=== PATIENT | female | born 1960 | race Caucasian/White ===

== ENCOUNTER 2022-03-12 08:43 | Emergency (ER) | payer MEDICAID ==
[~2022-03-12] VITALS: Ht 165.1 cm; Wt 102.3 kg
[2022-03-12 09:05] VITALS: BP 155/85
[2022-03-12] MEDS ORDERED: cefTRIAXone SOD 1,000 MG VL IM ONE (09:30)
[2022-03-12] MEDS ORDERED: CLIN300C8 PO (09:32)
[2022-03-12] MEDS ORDERED: IBUP800T27 PO (09:32)
== END 2022-03-12 09:57 | disposition home or self-care (01) ==
LOC: ER 08:43
DX: K04.7 Periapical abscess without sinus (principal); F17.290 Nicotine dependence, other tobacco product, uncomplicated
CPT/HCPCS: 96372; 99283; J0696

== ENCOUNTER 2024-11-19 17:40 | Emergency (ER) | payer MEDICAID ==
[~2024-11-19] VITALS: Ht 165.1 cm; Wt 87.1 kg
[~2024-11-19 17:40] MED LIST: CLIN1CAP70 PO; IBUP-1456 PO
--- NOTE | 2024-11-19 18:05 | ED.PDOC ---
GI ASSESSMENT HPI Comments 64-year-old female with a history of hypertension and anxiety brought in by self complaining of lower abdominal pain since 11/17/2024, described as dull, associated with diarrhea. Patient also reports fatigue, but denies fever, nausea, vomiting or dysuria. Patient also reports chest pain described as tightness 2 days ago. She states she took her own anxiety medication (buspirone and diazepam), and chest pain resolved. Denies any current chest pain, shortness of breath, diaphoresis, edema or palpitations. Chief Complaint: Pelvic Pain Time Seen by MD: 18:03 Primary Care Provider: BOBBI Lemus Notes: Nurses Notes, Medications, Allergies Allergies: Coded Allergies: NO KNOWN ALLERGIES (Unverified , 02/08/16) Home Meds Active Scripts Cephalexin Monohydrate (Cephalexin) 500 Mg Cap, 1 CAP PO QID for 10 Days, #40 C AP Prov:AMELIE ARRINGTON MD 11/19/24 Ibuprofen Micronized (Ibuprofen) 600 Mg Tab, 600 MG PO Q6HP PRN, #30 TAB Prn pain. Take with food. Prov:AMELIE ARRINGTON MD 11/19/24 Ibuprofen (Ibuprofen) 800 Mg Tab, 1 TAB PO TID, #30 TAB Prov:LILY SMALL 03/12/22 Clindamycin Hcl (Clindamycin Hcl) 300 Mg Cap, 1 CAP PO QID, #40 CAP Prov:LILY SMALL 03/12/22 Information Source: Patient Mode of Arrival: Ambulatory Timing: Days Duration: Since onset Prehospital treatment: None Vomitus: None Stool: Watery Severity: Moderate Recent: None Recent Hx of: None Pain Location: Suprapubic Modifying Factors: Nothing Associated sign and symptoms: Diarrhea, Abdominal Pain Past Medical History PAST MEDICAL HISTORY: HTN Surgical History: Denies all surgeries PUTTY MIXER History: No Pertinent PUTTY MIXER History Family History Family History: Reviewed,noncontributory to illness Social History Smoker: Other Alcohol: Denies ETOH Use Drugs: Denies Drug Use Lives In: Home Constitutional: denies: chills, diaphoresis, fatigue, fever, malaise, sweats, weakness, others EENTM: denies: blurred vision, double vision, ear bleeding, ear discharge, ear drainage, ear pain, ear ringing, eye pain, eye redness, hearing loss, mouth pain, mouth swelling, nasal discharge, nose bleeding, nose congestion, nose pain, photophobia, tearing, throat pain, throat swelling, voice changes, others Respiratory: denies: cough, hemoptysis, orthopnea, SOB at rest, shortness of breath, SOB with excertion, stridor, wheezing, others Cardiovascular: reports: chest pain; denies: dizzy spells, diaphoresis, Dyspnea on exertion, edema, irregular heart beat, left arm pain, lightheadedness, palpitations, PND, syncope, others Gastrointestinal: reports: abdominal pain, diarrhea; denies: abdomen distended, blood streaked bowels, constipated, dysphagia, difficulty swallowing, hem atemesis, melena, nausea, poor appetite, poor fluid intake, rectal bleeding, rectal pain, vomiting, others Genitourinary: denies: abnormal vagina bleeding, burning, dyspareunia, dysuria, flank pain, frequency, hematuria, incontinence, pain, , vagina discharge, urgency, others Neurological: denies: dizziness, fainting, headache, left sided numbness, left sided weakness, numbness, paresthesia, pre-existing deficit, right sided numbness, right sided weakness, seizure, speech problems, tingling, tremors, weakness, others Musculoskeletal: denies: back pain, gout, joint pain, joint swelling, muscle pain, muscle stiffness, neck pain, others Integumetry: denies: bruises, change in color, change in hair/nails, dryness, laceration, lesions, lumps, rash, wounds, others Allergic/Immunocompromised: denies: Difficulty Healing, Frequent Infections, Hives, Itching, others Hematologic/Lymphatic: denies: anemia, blood clots, easy bleeding, easy bruising, swollen glands, others Endocrine: denies: excessive hunger, excessive sweating, excessive thirst, excessive urination, flushing, intolerance to cold, intolerance to heat, unexplained weight gain, unexplained weight loss, others Psychiatric: denies: anxiety, bipolar disorder, depression, hopeless, panic disorder, schizophrenia, sleepless, suicidal, others All Other Systems: Reviewed and Negative Physical Exam General Appearance: No Apparent Distress HEENT: Other (Pupils and face symmetric. Moist mucous membranes.) Neck: Full Range of Motion, Normal Inspection Respiratory: Lungs Clear, No Accessory Muscle Use, No Respiratory Distress, Normal Breath Sounds Cardiovascular: No Edema, No JVD, Regular Rate/Rhythm Breast Exam: Deferred Gastrointestinal: Soft, Suprapubic, Tenderness Genitalia: Deferred Pelvic: Deferred Rectal: Deferred Extremities: Normal inspection, Normal range of motion, Non-tender, No pedal edema Neurologic: Alert (Oriented x4), Normal Affect, Other (Anxious. Ambulatory.) Cerebellar Function: NOT DONE Reflexes: NOT DONE Skin: Dry, Normal Color, Warm Lymphatic: NOT DONE EKG EKG : Comments Sinus rhythm, rate 56, normal intervals, normal axis, normal QRS, no ST/T changes. Was a procedure done? Was a procedure done?: No GI differential Dx Differential Diagnosis: Constipation, Diverticular disease, Gastroenteritis, Inflammatory BD, Ischemic Bowel, PID, UTI, Food Poisoning, Bacterial, Viral, Mass, Other (Colitis, among others) X-Ray, Labs, Meds, VS Vital Signs Date Time Temp Pulse Resp B/P (MAP) Pulse Ox O2 Delivery O2 Flow Rate FiO2 11/19/24 21:38 56 11/19/24 21:27 98.1 74 16 116/70 (85) 99 98.1 11/19/24 19:47 72 14 118/83 11/19/24 19:42 97.8 72 14 118/83 (95) 98 97.8 11/19/24 17:41 97.7 75 16 113/71 95 97.7 Lab Test 11/19/24 18:55 11/19/24 18:15 Range/Units Urine Color Light-yellow Yellow Urine Clarity Clear Clear Urine pH 5.5 5.0-9.0 Urine Specific [place] 1.012 1.001-1.035 Urine Protein Negative Negative Urine Ketones Negative Negative Urine Blood Negative Negative /uL Urine Nitrite Negative Negative Urine Bilirubin Negative Negative Urine Urobilinogen Normal Negative mg/dL Urine Leukocyte Esterase 3+ Negative /uL Urine RBC 1 0 - 4 /hpf Urine Microscopic WBC 33 H 0-5 /HPF Urine Squamous Epithelial Cells Few <5 /hpf Urine Bacteria None seen None Seen /hpf Urine Hyaline Casts Few 0 - 2 /lpf Urine Glucose Normal Normal mg/dL White Blood Count 6.8 4.4-10.8 10^3/uL Red Blood Count 4.87 4.0-5.20 10^6/uL Hemoglobin 14.6 12.2-16.2 g/dL Hematocrit 42.3 36.0-46.0 % Mean Corpuscular Volume 87.0 80.0-100.0 fL Mean Corpuscular Hemoglobin 30.0 28.0-32.0 pg Mean Corpuscular Hemoglobin Concent 34.5 32.0-36.0 g/dL Red Cell Distribution Width 13.2 11.8-14.3 % Platelet Count 399 140-450 10^3/uL Mean Platelet Volume 7.0 6.9-10.8 fL Neutrophils (%) (Auto) 53.5 37.0-80.0 % Lymphocytes (%) (Auto) 36.4 10.0-50.0 % Monocytes (%) (Auto) 6.3 0.0-12.0 % Eosinophils (%) (Auto) 3.2 0.0-7.0 % Basophils (%) (Auto) 0.6 0.0-2.0 % Neutrophils # (Auto) 3.6 1.6-8.6 10 ^3/uL Lymphocytes # (Auto) 2.5 0.4-5.4 10 ^3/uL Monocytes # (Auto) 0.4 0-1.3 10 ^3/uL Eosinophils # (Auto) 0.2 0-0.8 10 ^3/uL Basophils # (Auto) 0 0-0.2 10 ^3/uL Nucleated Red Blood Cells 0.1 % Sodium Level 143 136-145 mmol/L Potassium Level 3.7 3.5-5.1 mmol/L Chloride Level 106 98-107 mmol/L Carbon Dioxide Level 29 20-31 mmol/L Anion Gap 8 5-15 Blood Urea Nitrogen 10 9-23 mg/dL Creatinine 0.95 0.550-1.02 mg/dL Glomerular Filtration Rate Calc 67 >90 mL/min BUN/Creatinine Ratio 10.5 10.0-20.0 Serum Glucose 93 74-106 mg/dL Lactic Acid Level 1.2 0.4-2.0 mmol/L Calcium Level 9.0 8.7-10.4 mg/dL Current Medications Medications (Trade) Dose Ordered Sig/Gennaro Route Start Time Stop Time Status Last Admin Morphine Sulfate 4 mg ONCE ONCE IV 11/19/24 18:00 11/19/24 18:11 DC 11/19/24 19:47 Ondansetron HCl (Zofran) 4 mg ONCE ONCE IV 11/19/24 18:00 11/19/24 18:11 DC 11/19/24 19:47 Sodium Chloride 1,000 ml @ 1,000 mls/hr Q1H ONCE IV 11/19/24 18:00 11/19/24 18:59 DC 11/19/24 19:33 [place] [id number] Ph: [phone] DIAGNOSTIC IMAGING Diagnostic Imaging Report : [id number] Signed PATIENT: DENTON CABAN ACCT: [id number] UNIT: [id number] : 1960 LOC: ER ROOM / BED: / AGE / SEX: 64 / F ADM STATUS: REG ER SERVICE 51 ORDERING PHYSICIAN: AMELIE ARRINGTON MD PROCEDURE(s): ABPL - CT AB PEL WO CON-NO ORAL OR IV REASON: low abd pain, diarrhea ORDER NUMBER(s): [id number], ACCESSION NUMBER(s): [id number] CLINICAL HISTORY: low abd pain, diarrhea TECHNIQUE: CT of the abdomen and pelvis was performed without IV contrast. This exam was performed according to our departmental dose optimization program. Up-to-date CT equipment and radiation dose reduction techniques are utilized as appropriate. CTDI 17.1 DLP 941.1 COMPARISON: None FINDINGS: Abdomen/Pelvis: Due spleen, pancreas, adrenal glands, kidneys, and uterus are grossly remarkable. The gallbladder is absent. There is a right inferior hepatic cysts and a subcentimeter hypodense right hepatic dome lesion, which is incompletely characterized due to lack of IV contrast. The bladder is not well distended and therefore not well evaluated. The abdominal aorta is normal in course and caliber. There are mild atherosclerotic calcifications. There is no free intraperitoneal air or fluid. There is no enlarged abdominal pelvic lymph node. There is no bowel wall thickening or dilatation. The appendix is normal. Other: The imaged lower thorax demonstrates a small hiatal hernia containing the proximal stomach. There are mild at elected changes at both lung bases. No acute osseous abnormality is evident. Impression: No acute noncontrast CT abnormality of the abdomen / pelvis. Small hiatal hernia. ATED BY: CL DOWNEY MD DICTATED DATE/TIME: 11/19/241848 SIGNED BY: CL DOWNEY MD SIGNED DATE/TIME: 11/19/241848 CC: X-Ray, Labs, Meds, VS Comment 64-year-old female with a history of hypertension and anxiety complaining of lower abdominal pain associated with diarrhea Vitals unremarkable Exam remarkable for suprapubic tenderness to palpation Rhythm strip independently interpreted by me: Sinus rhythm, rate 82, no ectopy. CT abdomen and pelvis Impression: No acute noncontrast CT abnormality of the abdomen / pelvis. Small hiatal hernia. CBC, basic metabolic panel and lactate unremarkable UA abnormal consistent with UTI Patient treated with the following in the ED: 1 L 0.9 normal saline IV bolus, morphine 4 mg IV, Zofran 4 mg IV, Rocephin 1 g IV On re-evaluation, pain has improved. Vitals were stable. Hospitalization was considered, however patient had rapid improvement of symptoms with treatment in the ED, and I no longer feel hospitalization is necessary. Patient now appears stable for discharge with close outpatient follow-up with her primary physician. Rx ibuprofen, Keflex Time of 1ST Reevaluation: 18:33 Reevaluation 1ST: Unchanged Patient Education/Counseling: Diagnosis, Treatment Family Education/Counseling: No Family Present SEPSIS Sepsis Screen Date sepsis recognized/suspect: Nov 19, 2024 Time Sepsis recognized/suspect: 1744 Recent Procedure: No On Antibiotic Therapy: No Respiratory Rate >20: No Heart Rate >90: No Temp<36 C (96.8 F) or >38.3 C: No SBP <90 or MAP <65 mmHG: No New Acute Mental Status Change: No Is the patient on CPAP, BIPAP,: No Physician Orders Ct Ab Pel Wo Con-No Oral Or Iv (11/19/24 17:52) Electrocardigram (11/19/24 21:25) Stat Ekg For Chest Pain (11/19/24 21:25) Vital Signs Date Time Temp Pulse Resp B/P (MAP) Pulse Ox O2 Delivery O2 Flow Rate FiO2 11/19/24 21:38 56 11/19/24 21:27 98.1 74 16 116/70 (85) 99 98.1 11/19/24 19:47 72 14 118/83 11/19/24 19:42 97.8 72 14 118/83 (95) 98 97.8 11/19/24 17:41 97.7 75 16 113/71 95 97.7 Laboratory Tests Test 11/19/24 18:15 Lactic Acid Level 1.2 mmol/L (0.4-2.0) White Blood Count 6.8 10^3/uL (4.4-10.8) Medications Medications Dose Ordered Sig/Gennaro Route Start Time Stop Time Status Last Admin Dose Admin Morphine Sulfate 4 mg ONCE ONCE IV 11/19/24 18:00 11/19/24 18:11 DC 11/19/24 19:47 Ondansetron HCl 4 mg ONCE ONCE IV 11/19/24 18:00 11/19/24 18:11 DC 11/19/24 19:47 Sodium Chloride 1,000 ml @ 1,000 mls/hr Q1H ONCE IV 11/19/24 18:00 11/19/24 18:59 DC 11/19/24 19:33 Departure 1 Departure Time of Disposition: 20:55 Impression: Primary Impression: UTI (urinary tract infection) Disposition: HOME / SELF CARE / HOMELESS Condition: Stable Additional Instructions: Your blood tests were normal. Your urine test showed you have a urinary tract infection. Your CT scan was unremarkable for any acute abnormality which could be the cause of your symptoms. I have enclosed a report below, which you can show to your primary doctor when you follow-up. Your EKG was normal. I have prescribed pain medication and antibiotics for your UTI. Follow-up with your primary doctor in 1-2 days. Return to ER for persistent or worsening symptoms. [place] [address] Ph: [phone] DIAGNOSTIC IMAGING Diagnostic Imaging Report : [id number] Signed PATIENT: DENTON CABAN ACCT: [id number] UNIT: [id number] : 1960 LOC: ER ROOM / BED: / AGE / SEX: 64 / F ADM STATUS: REG ER SERVICE 638 ORDERING PHYSICIAN: AMELIE ARRINGTON MD PROCEDURE(s): ABPL - CT AB PEL WO CON-NO ORAL OR IV REASON: low abd pain, diarrhea ORDER NUMBER(s): [id number], ACCESSION NUMBER(s): [id number] CLINICAL HISTORY: low abd pain, diarrhea TECHNIQUE: CT of the abdomen and pelvis was performed without IV contrast. This exam was performed according to our departmental dose optimization program. Up-to-date CT equipment and radiation dose reduction techniques are utilized as appropriate. CTDI 17.1 DLP 941.1 COMPARISON: None FINDINGS: Abdomen/Pelvis: Due spleen, pancreas, adrenal glands, kidneys, and uterus are grossly remarkable. The gallbladder is absent. There is a right inferior hepatic cysts and a subcentimeter hypodense right hepatic dome lesion, which is incompletely characterized due to lack of IV contrast. The bladder is not well distended and therefore not well evaluated. The abdominal aorta is normal in course and caliber. There are mild atherosclerotic calcifications. There is no free intraperitoneal air or fluid. There is no enlarged abdominal pelvic lymph node. There is no bowel wall thickening or dilatation. The appendix is normal. Other: The imaged lower thorax demonstrates a small hiatal hernia containing the proximal stomach. There are mild at elected changes at both lung bases. No acute osseous abnormality is evident. Impression: No acute noncontrast CT abnormality of the abdomen / pelvis. Small hiatal hernia. e-Prescriptions Cephalexin Monohydrate (Cephalexin) 500 Mg Cap 1 CAP PO QID for 10 Days, #40 CAP Prov: AMELIE ARRINGTON MD 11/19/24 Ibuprofen Micronized (Ibuprofen) 600 Mg Tab 600 MG PO Q6HP PRN, #30 TAB Prn pain. Take with food. Prov: AMELIE ARRINGTON MD 11/19/24 Discharged With: Self Critical Care Note Critical Care Time?: No Stability Stability form required: No Heart Score Heart Score: Heart Score Response (Comments) Value History N/A 0 EKG N/A 0 Age N/A 0 Risk Factors N/A 0 Troponin N/A 0 Total 0 I personally scribed for AMELIE ARRINGTON MD ([email or web address]) on 11/19/24 at 18:05. Electronically submitted by Yanelis Carranza ([email or web address]). I personally scribed for AMELIE ARRINGTON MD ([email or web address]) on 11/19/24 at 19:41. Electronically submitted by Yanelis Carranza ([email or web address]). AMELIE ARRINGTON MD Nov 19, 2024 18:05
[2024-11-19 18:36] LABS: Hematocrit 42.3 % (36.0-46.0); Hemoglobin 14.6 g/dL (12.2-16.2); Mean Corpuscular Hemoglobin 30.0 pg (28.0-32.0); Mean Corpuscular Volume 87.0 fL (80.0-100.0); Nucleated Red Blood Cells % 0.1 %
--- NOTE | 2024-11-19 18:51 | DVH ---
CLINICAL HISTORY: low abd pain, diarrhea TECHNIQUE: CT of the abdomen and pelvis was performed without IV contrast. This exam was performed ac cording to our departmental dose optimization program. Up-to-date CT equipment and radiation dose red uction techniques are utilized as appropriate. CTDI 17.1 DLP 941.1 COMPARISON: None FINDINGS: Abdomen/Pelvis: Due spleen, pancreas, adrenal glands, kidneys, and uterus are grossly remarkable. The gallbladder is absent. There is a right inferior hepatic cysts and a subcentimeter hypodense rig ht hepatic dome lesion, which is incompletely characterized due to lack of IV contrast. The bladder is not well distended and therefore not well evaluated. The abdominal aorta is normal in course and caliber. There are mild atherosclerotic calcifications. There is no free intraperitoneal air or fluid. There is no enlarged abdominal pelvic lymph node. There is no bowel wall thickening or dilatation. The appendix is normal. Other: The imaged lower thorax demonstrates a small hiatal hernia containing the proximal stomach. There are mild at elected changes at both lung bases. No acute osseous abnormality is evident. Impression: No acute noncontrast CT abnormality of the abdomen / pelvis. Small hiatal hernia.
[2024-11-19 18:54] LABS: Anion Gap 8 (5-15); Carbon Dioxide 29 mmol/L (20-31); Chloride 106 mmol/L (98-107); Potassium 3.7 mmol/L (3.5-5.1); Sodium 143 mmol/L (136-145)
[2024-11-19 18:55] LABS: Calcium 9.0 mg/dL (8.7-10.4)
[2024-11-19 19:00] LABS: BUN/Creatinine Ratio 10.5 (10.0-20.0); Blood Urea Nitrogen 10 mg/dL (9-23); Glucose 93 mg/dL (74-106)
[2024-11-19] MEDS: SODIUM CHLORIDE 0.9% 1,000 ML IV ONE (19:33)
[2024-11-19] MEDS: ONDANSETRON HCL 4 MG/2 ML VIAL IV ONE (19:47)
[2024-11-19] MEDS: MORPHINE SULFATE 4 MG/ML SYR/VIAL IV ONE (19:47)
[2024-11-19 20:26] LABS: Urine Protein, UAD Negative (Negative)
[2024-11-19] MEDS ORDERED: CEPH500C PO (20:57)
[2024-11-19] MEDS ORDERED: IBUP1TAB5 PO (20:57)
[2024-11-19 21:27] VITALS: BP 116/70; RESP 16; TEMP 98.1; O2SAT 99
[2024-11-19 21:38] VITALS: PULSE 56
[2024-11-19] MEDS: HYDROcodone-ACET 5/325MG TAB PO ONE (22:02)
--- NOTE | 2024-11-20 06:10 | ECG ---
[facility] Test Date: 2024-11-19 Test Time: 21:38:30 Pat Name: DENTON CABAN Department: ED Room: Gender: F Regulatory Compliance Officer: FALGUNI : 1960 Requested By: AMELIE LEDEZMA Order Number: [id number] Reading MD: Ken Gray Measurements Intervals [place] Rate: 56 P: 30 IN: 149 QRS: 57 QRSD: 93 T: 49 QT: 420 QTc: 406 Interpretive Statements Sinus rhythm Electronically Signed On 11-21-2024 17:01:39 PDT by Ken Gray Please click the below link to view image of tracing.
== END 2024-11-19 22:03 | disposition home or self-care (01) ==
LOC: ER 17:40
DX: N39.0 Urinary tract infection, site not specified (principal); I10 Essential (primary) hypertension; F17.200 Nicotine dependence, unspecified, uncomplicated; Z79.1 Long term (current) use of non-steroidal anti-inflammatories (NSAID); Z79.899 Other long term (current) drug therapy
CPT/HCPCS: 36415; 74176; 80048; 81001; 83605; 85025; 93005; 96361; 96365; 96375; 99285; J0696; J2270; J2405; J7030